=== PATIENT | male | born 1995 | race Native Hawaiian/Other Pacific Islander ===

== ENCOUNTER 2021-04-27 15:44 | Outpatient (CLI) | payer BC | END 2021-04-27 19:04 | disposition home or self-care (01) | LOC: RAD 15:44 | PROVIDERS: ATTEND Orthopaedic Surgery | DX: M25.562 Pain in left knee (principal) ==

== ENCOUNTER 2021-09-14 15:24 | Outpatient (CLI) | payer BC | END 2021-09-14 18:55 | disposition home or self-care (01) | LOC: RAD 15:24 | PROVIDERS: ATTEND Orthopaedic Surgery | DX: M25.561 Pain in right knee (principal); M25.562 Pain in left knee ==